=== PATIENT | female | born 1960 | race Two or more races ===

== ENCOUNTER 2019-02-03 16:37 | Emergency (ER) | payer OTHER, SELFPAY ==
[~2019-02-03] VITALS: Ht 165.1 cm; Wt 96.0 kg
[2019-02-03 16:39] VITALS: BP 145/81
== END 2019-02-03 18:27 | disposition home or self-care (01) ==
LOC: ED 18:08
DX: S50.01XA Contusion of right elbow, initial encounter (principal); S80.01XA Contusion of right knee, initial encounter; S40.022A Contusion of left upper arm, initial encounter; W01.0XXA Fall on same level from slipping, tripping and stumbling without subsequent striking against object, initial encounter; Y93.89 Activity, other specified; Y92.512 Supermarket, store or market as the place of occurrence of the external cause; Y99.8 Other external cause status
CPT/HCPCS: 29105; 99283